=== PATIENT | female | born 1945 | race Two or more races ===

== ENCOUNTER 2020-11-17 05:35 | Day surgery (SDC) | payer OTHER ==
[~2020-11-17 05:35] MED LIST: MICARDIS HCT 41 EACH PO
[2020-11-17] MEDS ORDERED: PERCOCET 5-3251 EACH PO (09:06)
== END 2020-11-17 12:10 | disposition home or self-care (01) ==
LOC: CIR.AMB 05:35
PROVIDERS: ATTEND Surgery
DX: C73 Malignant neoplasm of thyroid gland (principal); Z20.822 Contact with and (suspected) exposure to COVID-19

== ENCOUNTER 2021-07-04 09:45 | Inpatient (IN) | payer OTHER ==
[~2021-07-04] VITALS: Ht 165.1 cm; Wt 84.4 kg
[~2021-07-04 09:45] MED LIST changes: +PERCOCET 5-3251 EACH PO
[2021-07-06] MEDS ORDERED: OPTIMAL D31250 MCG (07:58)
[2021-07-06] MEDS ORDERED: ATORVASTATIN CA10 MG (07:58)
[2021-07-07] MEDS ORDERED: PERCOCET 5-3251 EACH PO (07:01)
[2021-07-07] MEDS ORDERED: SYNTHROID137 MCG PO (07:03)
== END 2021-07-07 14:36 | disposition home or self-care (01) | DRG 627 ==
LOC: SURG 07-06 05:23 → O/R 07-06 05:23 → SURH 07-06 07:00 → SURG 07-06 16:05 → O/R 07-06 16:08 → SURG 07-06 17:58
PROVIDERS: ADMIT Surgery; ATTEND Surgery
PROC: 07T10ZZ Resection of Right Neck Lymphatic, Open Approach (ICD-10-PCS; 2021-07-06)
PROC: 0GTH0ZZ Resection of Right Thyroid Gland Lobe, Open Approach (ICD-10-PCS; principal; 2021-07-06 07:00)
DX: C73 Malignant neoplasm of thyroid gland (principal); Z20.822 Contact with and (suspected) exposure to COVID-19